=== PATIENT | female | born 1955 | race Caucasian/White ===

== ENCOUNTER 2017-04-11 19:35 | Emergency (ER) | payer OTHER ==
[2017-04-11 19:41] VITALS: TEMP 98.4
[2017-04-11] MEDS ORDERED: RANITIDINE 50 MG/2 ML VIAL IVP ONE (19:46)
[2017-04-11] MEDS ORDERED: IPRATROPIUM/ALBUTEROL 3 ML DEYVIAL IH ONE (19:46)
[2017-04-11] MEDS ORDERED: methylPREDNISolone SOD SUCC 125 MG/2 ML VIAL IVP ONE (19:46)
[2017-04-11] MEDS ORDERED: NS 1,000 ML IV ONE ×2 (19:46→20:58)
--- NOTE | 2017-04-11 19:50 | EDPHY ---
H & P Stated Complaint: allergic rxn to shellfish HPI/ROS: HPI CHIEF COMPLAINT: Allergic reaction HISTORY OF PRESENT ILLNESS: This patient very pleasant 61-year-old female significant past medical history for thyroid disease, breast cancer, and allergic to shellfish, she had a remote history of allergic reaction to shellfish years ago with tongue swelling, she has since previously eaten shellfish and not had any acute issues. Patient presents emergency room by private vehicle with trouble swallowing, trouble breathing, diffuse urticaria consistent with anaphylaxis. She was immediately brought back to room ER 11 where she was immediately given 0.3 mg IM epinephrine. An IV has been established she has been put on full cardiac rehabilitation specialist, she will be given IV Solu-Medrol, IV Benadryl IV Zantac. DuoNeb breathing treatment and IV fluids. Close monitoring. May need 2nd dose of epinephrine of does not improve. At this time she has no stridor. She does have a cough. Past Medical History: Breast cancer, thyroid disease, anaphylaxis shellfish Past Surgical History: Lumpectomy, right rhomboid surgery Social History: Denies daily use of drugs alcohol tobacco products, works here at [employer] Family History: Noncontributory ROS REVIEW OF SYSTEMS: A comprehensive 10 point review of systems is otherwise negative aside from elements mentioned in the history of present illness. Exam Constitutional appears nontoxic, mild distress,, triage nursing summary reviewed, vital signs reviewed, awake/alert. Eyes normal conjunctivae and sclera, EOMI, PERRLA. HENT posterior pharynx normal, no tongue swelling or uvula swelling, no stridor on exam, normal inspection, atraumatic, moist mucus membranes, no epistaxis, neck supple/ no meningismus, no raccoon eyes. Respiratory no wheezing no stridor clear to auscultation bilaterally, normal breath sounds, no respiratory distress, no wheezing. Cardiovascular rate normal, regular rhythm, no murmur, no edema, distal pulses normal. Gastrointestinal soft, non-tender, no rebound, no guarding, normal bowel sounds, no distension, no pulsatile mass. Genitourinary no CVA tenderness. Musculoskeletal no midline vertebral tenderness, full range of motion, no calf swelling, no tenderness of extremities, no meningismus, good pulses, neurovascularly intact. Skin diffuse urticaria, erythematous skin throughout Neurologic awake, alert and oriented x 3, AAOx3, moves all 4 extremities equally, motor intact, sensory intact, CN II-XII intact, normal cerebellar, normal vision, normal speech. Psychiatric normal mood/affect. Heme/Lymph/Immune no lymphadenopathy. Differential Diagnosis: Includes but is not limited to in a particular order, acute anaphylactic reaction to shellfish, severe allergic reaction Medical Decision Making: Plan for this patient full cardiac rehabilitation specialist, IM epinephrine, IV Solu-Medrol, IV Benadryl, IV Zantac, DuoNeb breathing treatment , close monitoring. May need 2nd dose of epinephrine. Re-evaluation: 1954: Patient was given IM epinephrine. Shortly after she developed chest tightness and chest pain. She tells me that she cannot breathe at this time. She has been moved from ER room 11 to ER room 2. She is on full cardiac rehabilitation specialist will obtain EKG and chest x-ray. I did re-evaluate her right now she does tell me she feels better. But did have chest discomfort. 2001: Re-evaluation at this time patient is resting comfortably she feels much better. She tells me chest pain is resolved. Plan for this patient full cardiac rehabilitation specialist at this time EKG. Troponin blood work. EKG interpretation by me on record in [employer] system. Impression time of EKG 2002: EKG shows sinus rhythm rate of 77, ST segment scooping V1, V2, V3, V4 , V V5, V6 also inferior leads. Otherwise no acute ischemia. ED x-ray chest: One view negative for acute cardiopulmonary disease. 2019: Re-evaluation at this time: She is feeling much better. Blood pressure noted to be in the 70s. She is getting IV fluid bolus. 2104: Re-examination at this time. She is feeling fine. She denies chest pain or shortness of breath her urticaria is completely resolved is no further signs of allergic reaction or anaphylaxis. She is requesting discharge. She did have soft blood pressure. He has greatly improved after IV fluids blood pressure is currently 96 systolic. Again no chest pain no shortness of breath and a cardiac rehabilitation specialist completely stable no signs of further allergic reaction. Patient is requesting discharge however like to monitor slightly longer. I will allow her to go home given she has done really well. Prescription given for Pepcid, prednisone for 3 days also will prescribe an epinephrine pen her sudden-onset chest pain shortness of breath feeling as if she could not breathe started right after IV Benadryl 50 mg was pushed. This may have caused this. Or was from the epinephrine she was absorbing intramuscular right shoulder. The patient is hesitant about taking Benadryl after this possible reaction. Will only be placed on Pepcid and prednisone. 2116: Patient remains stable. Like to go home. Understands strict return precautions. Return if any further signs of symptoms. Source: Patient Constitutional: Initial Vital Signs Temperature (C) 36.9 C 04/11/17 19:40 Heart Rate 94 04/11/17 19:40 Respiratory Rate 18 04/11/17 19:40 Blood Pressure 133/84 H 04/11/17 19:40 O2 Sat (%) 95 04/11/17 19:40 O2 Delivery Mode Nasal Cannula O2 (L/minute) 2 Allergies/Adverse Reactions: shellfish derived Allergy (Verified 04/11/17 20:23) Home Medications: Medication Instructions Recorded EPINEPHRINE [EPIPEN] 0.3 mg IM ONCE #2 syr 04/11/17 Famotidine [Pepcid 20 MG (*)] 20 mg PO BID #6 tab 04/11/17 predniSONE 50 mg PO DAILY #3 tablet 04/11/17 Medical Decision Making - Data Points Laboratory Results: Laboratory Results 04/11/17 19:45 04/11/17 19:45 04/11/17 04/11/17 04/11/17 19:45 19:45 19:45 WBC 7.35 10^3/uL 10^3/uL (3.80-9.50) RBC 4.44 10^6/uL 10^6/uL (4.18-5.33) Hgb 14.3 g/dL g/dL (12.6-16.3) Hct 41.3 % % (38.0-47.0) MCV 93.0 fL fL (81.5-99.8) MCH 32.2 pg pg (27.9-34.1) MCHC 34.6 g/dL g/dL (32.4-36.7) RDW 12.5 % % (11.5-15.2) Plt Count 235 10^3/uL 10^3/uL (150-400) MPV 10.0 fL fL (8.7-11.7) Neut % (Auto) 55.1 % % (39.3-74.2) Lymph % (Auto) 30.3 % % (15.0-45.0) Garden % (Auto) 10.9 % % (4.5-13.0) Eos % (Auto) 2.9 % % (0.6-7.6) Baso % (Auto) 0.4 % % (0.3-1.7) Nucleat RBC Rel Count 0.0 % % (0.0-0.2) Absolute Neuts (auto) 4.05 10^3/uL 10^3/uL (1.70-6.50) Absolute Lymphs (auto) 2.23 10^3/uL 10^3/uL (1.00-3.00) Absolute Monos (auto) 0.80 10^3/uL 10^3/uL (0.30-0.80) Absolute Eos (auto) 0.21 10^3/uL 10^3/uL (0.03-0.40) Absolute Basos (auto) 0.03 10^3/uL 10^3/uL (0.02-0.10) Absolute Nucleated RBC 0.00 10^3/uL 10^3/uL (0-0.01) Immature Gran % 0.4 % % (0.0-1.1) Immature Gran # 0.03 10^3/uL 10^3/uL (0.00-0.10) Sodium 140 mEq/L mEq/L (134-144) Potassium 4.2 mEq/L mEq/L (3.5-5.2) Chloride 102 mEq/L mEq/L (97-110) Carbon Dioxide 27 mEq/l mEq/l (22-31) Anion Gap 11 mEq/L mEq/L (8-16) BUN 15 mg/dL mg/dL (7-23) Creatinine 0.8 mg/dL mg/dL (0.6-1.0) Estimated GFR > 60 Glucose 96 mg/dL mg/dL (70-100) Calcium 9.9 mg/dL mg/dL (8.5-10.4) Troponin I < 0.012 ng/mL ng/mL (0-0.034) Medications Given: Discontinued Medications Albuterol/Ipratropium (Duoneb) 3 ml IH EDNOW ONE Stop: 04/11/17 19:47 Last Admin: 04/11/17 21:02 Dose: Not Given Diphenhydramine HCl (Benadryl Injection) 50 mg IVP EDNOW ONE Stop: 04/11/17 19:47 Last Admin: 04/11/17 19:56 Dose: 50 mg Epinephrine HCl (Epinephrine) 0.3 mg IM EDNOW ONE Stop: 04/11/17 19:47 Last Admin: 04/11/17 19:45 Dose: 0.3 mg Sodium Chloride (Ns) 1,000 mls @ 0 mls/hr IV ONCE ONE PRN Reason: Wide Open Stop: 04/11/17 19:47 Last Admin: 04/11/17 19:57 Dose: 1,000 mls Sodium Chloride (Ns) 1,000 mls @ 0 mls/hr IV ONCE ONE PRN Reason: Wide Open Stop: 04/11/17 20:59 Last Admin: 04/11/17 21:01 Dose: 1,000 mls Methylprednisolone Sodium Succinate (Solu-Medrol) 125 mg IVP EDNOW ONE Stop: 04/11/17 19:47 Last Admin: 04/11/17 19:56 Dose: 125 mg Ranitidine HCl (Zantac) 50 mg IVP EDNOW ONE Stop: 04/11/17 19:47 Last Admin: 04/11/17 19:57 Dose: 50 mg Departure - Departure Disposition: Home, Routine, Self-Care Clinical Impression: Acute anaphylaxis Qualifiers: Encounter type: initial encounter Qualified Code(s): T78.2XXA - Anaphylactic shock, unspecified, initial encounter Condition: Fair Instructions: Urticaria (ED), Food Allergy (ED), Anaphylaxis (ED), Allergies ( ED) Additional Instructions: 1. Refrain from ingesting shellfish. 2. Return emergency room immediately if he develops any signs of further allergic reaction this includes rash, trouble breathing, nausea vomiting, trouble swallowing. Return immediately. 3. Please take Pepcid and prednisone for the next 3 days. I have also filled do an epinephrine prescription. You should carry this with you at all times. Referrals: Cara Caicedo MD [Primary Care Provider] - As per Instructions Prescriptions: EPINEPHRINE [EPIPEN] 0.3 mg IM ONCE #2 syr Famotidine [Pepcid 20 MG (*)] 20 mg PO BID #6 tab predniSONE 50 mg PO DAILY #3 tablet
[2017-04-11 19:57] LABS: % IMMATURE GRANULYOCYTES 0.4 % (0.0-1.1); ABSOLUTE IMMATURE GRANULOCYTES 0.03 10^3/uL (0.00-0.10); ADD DIFF? NO; ADD MORPH? NO; ADD SCAN? NO; ATYPICAL LYMPHOCYTE FLAG 10 (0-99); FRAGMENT RBC FLAG 0 (0-99); HEMATOCRIT 41.3 % (38.0-47.0); HEMOGLOBIN 14.3 g/dL (12.6-16.3); LEFT SHIFT FLG 0 (0-99); LIPEMIA HEMOLYSIS FLAG 90 (0-99); MEAN CELL HEMOGLOBIN 32.2 pg (27.9-34.1); MEAN CELL HEMOGLOBIN CONCENTR. 34.6 g/dL (32.4-36.7); PLATELET CLUMPS FLAG 0 (0-99); PLATELET COUNT 235 10^3/uL (150-400); RED BLOOD CELL COUNT 4.44 10^6/uL (4.18-5.33); RED CELL DISTRIBUTION WIDTH 12.5 % (11.5-15.2)
--- NOTE | 2017-04-11 20:05 | CPEKG ---
Heart Rate: 77 RR Interval: 779 P-R Interval: 132 QRSD Interval: 72 QT Interval: 404 QTC Interval: 458 P [place]: 70 QRS [place]: 66 T Wave [place]: -7 EKG Severity - NORMAL ECG - EKG Impression: SINUS RHYTHM Electronically Signed By: Frank Encarnacion 11-Apr-2017 21:34:07
[2017-04-11 20:09] LABS: ANION GAP 11 mEq/L (8-16); CARBON DIOXIDE 27 mEq/l (22-31); CHLORIDE 102 mEq/L (97-110); GLUCOSE 96 mg/dL (70-100); POTASSIUM 4.2 mEq/L (3.5-5.2); SODIUM 140 mEq/L (134-144)
[2017-04-11 20:10] LABS: CALCIUM 9.9 mg/dL (8.5-10.4); CREATININE 0.8 mg/dL (0.6-1.0); GLOMERULAR FILTRATION RATE > 60
[2017-04-11 21:37] VITALS: BP 98/62; PULSE 84; RESP 18; O2SAT 93
[2017-04-11] MEDS ORDERED: IPRATROPIUM/ALBUTEROL 3 ML DEYVIAL ONE (21:59)
== END 2017-04-11 21:33 | disposition home or self-care (01) ==
DX: T78.2XXA Anaphylactic shock, unspecified, initial encounter (principal); Z85.3 Personal history of malignant neoplasm of breast
CPT/HCPCS: 96374; J0171

== ENCOUNTER 2017-04-11 22:01 | Observation (INO) | payer OTHER ==
[2017-04-11] MEDS ORDERED: IPRATROPIUM/ALBUTEROL 3 ML DEYVIAL IH ONE (22:05)
--- NOTE | 2017-04-11 22:06 | CPEKG ---
Heart Rate: 85 RR Interval: 706 P-R Interval: 124 QRSD Interval: 60 QT Interval: 384 QTC Interval: 457 P [place]: 70 QRS [place]: 63 T Wave [place]: 41 EKG Severity - ABNORMAL ECG - EKG Impression: PROBABLE LEFT ATRIAL ABNORMALITY EKG Impression: sinus rhythm Electronically Signed By: Sophie Augustin 12-Apr-2017 00:54:53
--- NOTE | 2017-04-11 22:07 | EDPHY ---
H & P Time Seen by Provider: 04/11/17 22:03 HPI/ROS: CHIEF COMPLAINT: Allergic reaction HISTORY OF PRESENT ILLNESS: This patient is a 61 year old female who presents to the Emergency Department with her second visit tonight secondary to an acute allergic reaction to shellfish. During her visit earlier momo, she was treated with steroids, Benadryl, and epinephrine which effectively treated her anaphylaxis. She reports feeling normal at time of discharge. When driving home , however, she began to experience recurrence of throat swelling and cough, prompting her to return to the ED. She reports associated dyspnea. Denies rash, heart palpitations, lightheadedness, or additional complaints. She reports that she eats small amounts of shellfish regularly but does have a remote history of anaphylactic reaction to shellfish. REVIEW OF SYSTEMS: Aside from elements discussed in the HPI, a comprehensive 10-point review of systems was reviewed and is negative. 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 PHYSICAL EXAM: VITAL SIGNS: Reviewed by me GENERAL: Well-developed, well-nourished, frequent cough. Slight swelling noted to the upper lip. HEENT: Upper lip swelling. No eyelid edema. Eyes: No icterus, no injection. Mouth: moist mucous membranes. No erythema or lesions, angioedema of the uvula. Neck: supple, no stridor. LUNGS: Frequent cough, wheezes, no stridor. CARDIAC: Regular rate and rhythm, no rubs, murmurs or gallops. ABDOMEN: Soft, nontender, nondistended, bowel sounds normal. BACK: No CVA tenderness. EXTREMITIES: No trauma. No edema. Range of motion is normal throughout. NEURO: Alert and oriented, grossly nonfocal. SKIN: Warm and dry, no rash. PSYCHIATRIC: Normal mentation, no agitation. Portions of this note were transcribed by a medical support assistant. I personally performed a history, physical exam, medical decision making, and confirmed accuracy of information the transcribed note. Source: Patient - Medical/Surgical History Hx Asthma: No Hx Chronic Respiratory Disease: No Hx Diabetes: No Hx Cardiac Disease: No Hx Renal Disease: No Hx Cirrhosis: No Hx Alcoholism: No Hx HIV/AIDS: No Hx Splenectomy or Spleen Trauma: No Other PMH: Breast Ca, lumpectomy. Hypothyroid, clotting disorder, C3-7 fusion. - Social History Smoking Status: Never smoked Constitutional: Initial Vital Signs Heart Rate 91 04/11/17 22:05 Respiratory Rate 18 04/11/17 22:05 Blood Pressure 102/75 04/11/17 22:05 O2 Sat (%) 98 04/11/17 22:05 O2 Delivery Mode Nasal Cannula O2 (L/minute) 2 Allergies/Adverse Reactions: shellfish derived Allergy (Verified 04/11/17 20:23) Home Medications: Medication Instructions Recorded EPINEPHRINE [EPIPEN] 0.3 mg IM ONCE #2 syr 04/11/17 Famotidine [Pepcid 20 MG (*)] 20 mg PO BID #6 tab 04/11/17 predniSONE 50 mg PO DAILY #3 tablet 04/11/17 Medical Decision Making - Diagnostics EKG Interpretation: The 12 lead EKG was interpreted by myself: Sinus rhythm, rate 85; no ischemic changes. See hard copy and/or "tracemaster" electronic copy for interpretation. ED Course/Re-evaluation: 61-year-old female presents for 2nd visit tonight secondary to anaphylactic reaction to shellfish. I reviewed records from her previous visit. The patient was treated at that time with: 50mg Zantac, 0.3mg IM epinephrine, 3ml IH DuoNeb , and 50mg IV Benadryl. Apparently, she became acutely tachycardic with PVCs after administration of medications. Given this, will obtain EKG prior to administration of additional medications. Patient place on 2L O2 via nasal cannula. Albuterol administered. EKG obtained (see interpretation above). 0.15mg IM epinephrine administered without complication. 2240: On reevaluation, the patient is resting comfortably. I discussed with her the plan for admission for continued observation. She is agreeable to this. 2248: Consultation with Dr. Janett Rutherford, hospitalist, who accepts admission. Differential Diagnosis: Differential diagnoses for the patient's symptom complex was considered including but not limited to allergic reaction, urticaria, anaphylaxis, hereditary angioedema, drug-induced reaction. Consult/Admit Bed Type: Dr. Denisa Rutherford, med surg - Data Points Medications Given: Discontinued Medications Albuterol/Ipratropium (Duoneb) 3 ml IH EDNOW ONE Stop: 04/11/17 22:06 Last Admin: 04/11/17 22:05 Dose: 3 ml Epinephrine HCl (Epinephrine) 0.15 mg IM EDNOW ONE Stop: 04/11/17 22:06 Last Admin: 04/11/17 22:08 Dose: 0.15 mg Departure - Departure Disposition: [facility] Inpatient Acute Clinical Impression: Acute anaphylaxis Qualifiers: Encounter type: subsequent encounter Qualified Code(s): T78.2XXD - Anaphylactic shock, unspecified, subsequent encounter Allergic reaction Qualifiers: Encounter type: subsequent encounter Qualified Code(s): T78.40XD - Allergy, unspecified, subsequent encounter Condition: Fair Report Scribed for: Sophie Augustin Report Scribed by: Antonette Villegas Date of Report: 04/11/17 Time of Report: 22:17
[2017-04-11] MEDS ORDERED: ONDANSETRON DISINTEGRATING 4 MG TAB PO PRN (23:33)
[2017-04-11] MEDS ORDERED: HYDROCODONE/APAP 5/325 TAB PO PRN (23:33)
[2017-04-11] MEDS ORDERED: LORazepam 0.5 MG TAB PO PRN (23:33)
[2017-04-11] MEDS ORDERED: ACETAMINOPHEN 325 MG TAB PO PRN (23:33)
[2017-04-11] MEDS ORDERED: ONDANSETRON 4 MG/2 ML VIAL IVP PRN (23:33)
[2017-04-11] MEDS ORDERED: ALBUTEROL 3 ML DEYVIAL IH PRN (23:33)
[2017-04-11] MEDS ORDERED: NS 1,000 ML IV SCH (23:45)
--- NOTE | 2017-04-11 23:45 | PDGENHP ---
History and Physical - Chief Complaint anaphylaxis - History of Present Illness Patient is a 61 year old female with hypothyroidism, antiphospholipid ab syndrome, osteoporosis who presents to the ED with complaint of facial hives and gum swelling after eating shellfish. Patient first discovered she had a shellfish allergy about 2 years ago, when while eating a lobster she developed acute angioedema of her tongue, for which she was hospitalized (without respiratory failure). Since that time, she has eaten shellfish periodically without adverse event, including 2 days prior to presentation, where she ate a large portion of shrimp cocktail. This evening, she had begun eating the remainder of her shrimp cocktail and shortly after she began eating she developed large hives on her face. The hives progressed throughout her body in a diffuse rash, she felt her gums swelling, as well as chest tightness and a dry cough. Her family also noted some hoarseness in her voice, but she denied any tongue swelling or shortness of breath. She took a dose of rebecca and prednisone 60 mg at home, but her symptoms continued to progress, so she then drove herself to the ED for evaluation. On arrival to the ED, patient was afebrile and hemodynamically stable. On exam she had a diffuse rash, with angioedema of her mucus membranes without tongue involvement or stridor. She was given solumedrol, IM epi, benadryl and albuterol with significant improvement in her allergic symptoms. She did develop a transient tachycardia after epi administration, but this resolved over 10-15 minutes. Given her complete resolution of symptoms, normal labs and imaging, she was then discharged home with famotidine and prednisone prescriptions. While driving home, patient again began to feel slight chest tightness and a dry cough, without stridor or tongue swelling. Given these recurrent symptoms, she returned to the ED immediately. On readmission to the ED, patient was given an additional dose of IM epi, nebs and her symptoms again resolved. She was then admitted to the hospitalist service for further observation overnight. History Information - Allergies/Home Medication List Allergies/Adverse Reactions: shellfish derived Allergy (Verified 04/11/17 20:23) I have personally reviewed and updated: family history, medical history, social history, surgical history - Past Medical History Additional medical history: hypothyroidism. antiphospholipid ab syndrome ( never had DVT/PE, on aspirin only for prevention). osteoporosis. h/o L breast cancer, s/p lumpectomy and radiation therapy - Surgical History Additional surgical history: multiple b/l shoulder and knee orthopedic surgeries. R cataract repair. 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 Review of Systems ROS: 10pt was reviewed & negative except for what was stated in HPI & below Physical Exam Temp Pulse Resp BP Pulse Ox 82 16 113/65 98 04/11/17 23:15 04/11/17 23:15 04/11/17 23:15 04/11/17 23:15 O2 (L/minute) 2 Constitutional: no apparent distress, appears nourished, not in pain Eyes: PERRL, anicteric sclera, EOMI Ears, Nose, Mouth, Throat: moist mucous membranes, hearing normal, ears appear normal, no oral mucosal ulcers Cardiovascular: regular rate and rhythym, no murmur, rub, or gallop, pulses symmetric bilaterally, No JVD, No edema Peripheral Pulses: 2+: dorsalis-pedis (R), dorsalis-pedis (L) Respiratory: no respiratory distress, no rales or rhonchi, clear to auscultation , other (no stridor ) Gastrointestinal: normoactive bowel sounds, soft, non-tender abdomen, no palpable masses Genitourinary: no bladder fullness, no bladder tenderness Skin: warm, normal color, no rashes or abrasions, no fluctuance, no induration, No mottled Musculoskeletal: full muscle strength, no muscle tenderness, normal joint ROM, no joint effusions Neurologic: AAOx3, sensation intact bilaterally, CN II-XII Intact, No weakness, No numbness, No facial droop Psychiatric: interacting appropriately, not anxious, not encephalopathic, thought process linear Lab Data & Imaging Review 04/11: labs reviewed, CBC, BMP and troponin normal. Visualized and Interpreted Chest x-ray results: Yes Chest X-Ray results: no infiltrate, normal Visualized and Interpreted EKG results: Yes EKG Interpretation: Positive for: normal sinsus rhythm Assessment & Plan Assessment: Patient is a 61 year old female with hypothyroidism, APS and shellfish allergy who presents to the ED with complaint of rash and chest tightness after shellfish ingestion. ED evaluation reveals acute anaphylaxis, likely due to shellfish exposure. She was never in respiratory distress and symptoms have significantly improved with IM epinephrine, steroids, famotidine, and she is being admitted for further observation. Plan: # acute anaphylaxis On my evaluation, patient has no evidence of rash, angioedema, wheezing or stridor. Respiratory status currnetly stable. However, she did have recurrence of symptoms after discharge from the ED earlier in the evening, so further observation is warranted. Will continue IV solumedrol, IV famotidine and IV diphenhydramine overnight. If cough, wheezing or stridor recur, will re-dose IM epinephrine as needed. # Antiphospholipid ab syndrome Patient reports being prescribed only full dose aspirin for prophylaxis, has not previously had a DVT/PE. Will continue aspirin. # hypothyroidism Cont home med. #h/o breast cancer In remission, cont home meds # dispo: admit to observation status # gen: regular diet Full code
[2017-04-12] MEDS: methylPREDNISolone SOD SUCC 125 MG/2 ML VIAL IVP SCH ×2 (00:12→04:31)
[2017-04-12 05:40] VITALS: O2SAT 95
[2017-04-12] MEDS ORDERED: CEPACOL LOZENGE PO PRN (05:59)
[2017-04-12 07:22] VITALS: BP 97/56; PULSE 81; RESP 16; TEMP 98.1
[2017-04-12] MEDS ORDERED: FAMOTIDINE 20 MG/NACL 50 ML IV SCH (09:00)
--- NOTE | 2017-04-12 09:38 | HOSPPROG ---
Hospitalist Progress Note Assessment/Plan: Joan is a 61-year-old female presented to the emergency room with complaints of rash and chest tightness after shellfish ingestion. She has a history of shellfish allergy but has been able to tolerate it at times. She was given IM epinephrine, steroids Pepcid. And was admitted for observation overnight. Today is my 1st encounter with the patient. Chart reviewed. # acute anaphylaxis Treated with IV steroids and Pepcid overnight Make sure she has an EpiPen available to her # Antiphospholipid ab syndrome Resumed aspirin. Has not had a DVT or PE # hypothyroidism Synthroid #h/o breast cancer In remission, cont home meds # dispo: dc home Subjective: Joan is feeling well/ no shortness of breath, no trouble swallowing. Objective: Vital Signs Temp Pulse Resp BP Pulse Ox 36.7 C 81 16 97/56 L 95 04/12/17 07:21 04/12/17 07:21 04/12/17 07:21 04/12/17 07:21 04/12/17 07:21 04/11/17 04/12/17 04/13/17 05:59 05:59 05:59 Intake Total 1050 Balance 1050 - Physical Exam Constitutional: no apparent distress, appears nourished, not in pain Eyes: PERRL Ears, Nose, Mouth, Throat: hearing normal Cardiovascular: regular rate and rhythym Respiratory: no respiratory distress, No expiratory wheeze Gastrointestinal: normoactive bowel sounds, soft, non-tender abdomen Skin: warm, normal color Musculoskeletal: full muscle strength, no muscle tenderness Neurologic: AAOx3 Psychiatric: interacting appropriately ICD10 Worksheet Patient Problems: Problems Problem Status Onset Acute anaphylaxis Acute Allergic reaction Acute
[2017-04-12] MEDS ORDERED: CHOLECALCIFEROL VIT D3 1,000 UNITS TAB PO SCH (09:45)
[2017-04-12] MEDS ORDERED: LEVOTHYROXINE 100 MCG TAB PO SCH (09:45)
[2017-04-12] MEDS ORDERED: ASPIRIN 81 MG CHEWABLE TAB PO SCH (09:45)
--- NOTE | 2017-04-12 12:17 | GDS ---
[f rep st] DISCHARGE SUMMARY DISCHARGE DIAGNOSES: 1. Acute anaphylaxis after eating shellfish. 2. Antiphospholipid antibody syndrome. 3. Hypothyroidism. 4. History of breast cancer in remission. HISTORY: Briefly, the patient is a 61-year-old female who presented to the emergency room with comp laints of rash and chest tightness after shellfish ingestion. She has a history of shellfish allerg y, but had been able to tolerate this at times. She started noticing increased swelling in her thro at and wheezing. She was given epinephrine as well as steroids and Pepcid. She is feeling markedly better. She will be discharged home. She does have an EpiPen available to her. She is aware that she needs to avoid shellfish. In addition, recommend she continue Pepcid for the next few days and keep Benadryl at home p.r.n. Copy requested to: primary care provider /[id number]/MODL
[2017-04-13] MEDS ORDERED: MULTIVITAMINS 1 EACH TAB PO SCH (09:00)
[2017-04-13] MEDS ORDERED: ANASTROZOLE 1 MG TAB PO SCH (09:00)
[2017-04-13] MEDS ORDERED: Herbals/Supplements -Info Only PO SCH (09:00)
[2017-05-01] MEDS ORDERED: RISEDRONATE SODIUM 150 MG PO SCH (09:00)
== END 2017-04-12 11:56 | disposition home or self-care (01) ==
LOC: F3E 23:40
PROVIDERS: ADMIT Internal Medicine; ATTEND Hospitalist
DX: T78.02XA Anaphylactic reaction due to shellfish (crustaceans), initial encounter (principal); D68.61 Antiphospholipid syndrome; E03.9 Hypothyroidism, unspecified; Z85.3 Personal history of malignant neoplasm of breast; Z91.013 Allergy to seafood; M43.22 Fusion of spine, cervical region
CPT/HCPCS: 93005; G0378; J1200

== ENCOUNTER → 2017-06-25 | Outpatient (CLI) | payer OTHER | LOC: FIMAGING 15:12 | PROVIDERS: ATTEND Internal Medicine Hematology & Oncology | DX: Z12.31 Encounter for screening mammogram for malignant neoplasm of breast (principal); Z85.3 Personal history of malignant neoplasm of breast | CPT/HCPCS: G0202 ==

== ENCOUNTER → 2017-09-27 | Outpatient (CLI) | payer OTHER | LOC: FIMAGING 07:08 | PROVIDERS: ATTEND Physical Medicine & Rehabilitation | DX: M75.112 Incomplete rotator cuff tear or rupture of left shoulder, not specified as traumatic (principal); M75.22 Bicipital tendinitis, left shoulder ==

== ENCOUNTER → 2018-01-13 | Outpatient (CLI) | payer OTHER | LOC: FIMAGING 08:47 | PROVIDERS: ATTEND Internal Medicine Hematology & Oncology | DX: N64.59 Other signs and symptoms in breast (principal); Z85.3 Personal history of malignant neoplasm of breast ==

== ENCOUNTER → 2018-01-17 | Outpatient (CLI) | payer OTHER ==
[~2018-01-17] MED LIST: GADOBUTROL 10 ML VIAL IVP ONE
== END ==
LOC: FIMAGING 11:45
PROVIDERS: ATTEND Surgery
DX: N63.20 Unspecified lump in the left breast, unspecified quadrant (principal); Z85.3 Personal history of malignant neoplasm of breast
CPT/HCPCS: 0159T; 77059; A9585; C8908

== ENCOUNTER → 2018-07-10 | Outpatient (CLI) | payer OTHER | LOC: FIMAGING 07:35 | PROVIDERS: ATTEND Internal Medicine Hematology & Oncology | DX: Z12.31 Encounter for screening mammogram for malignant neoplasm of breast (principal); Z85.3 Personal history of malignant neoplasm of breast ==

== ENCOUNTER → 2018-07-12 | Outpatient (CLI) | payer OTHER | LOC: FIMAGING 09:33 | PROVIDERS: ATTEND Internal Medicine Hematology & Oncology | DX: R92.0 Mammographic microcalcification found on diagnostic imaging of breast (principal) ==

== ENCOUNTER → 2018-08-04 | Outpatient (CLI) | payer OTHER | LOC: FIMAGING 08:31 | PROVIDERS: ATTEND Physical Medicine & Rehabilitation | DX: M50.31 Other cervical disc degeneration, high cervical region (principal); M48.02 Spinal stenosis, cervical region; M47.892 Other spondylosis, cervical region; Z98.1 Arthrodesis status ==

== ENCOUNTER → 2019-03-03 | Outpatient (CLI) | payer OTHER | LOC: FIMAGING 20:27 | PROVIDERS: ATTEND Physician Assistant | DX: R05 Cough (principal) ==

== ENCOUNTER → 2019-05-15 | Outpatient (CLI) | payer OTHER | LOC: FIMAGING 09:09 ==